=== PATIENT | female | born 1970 | race African-American/Black ===

== ENCOUNTER 2017-12-15 11:04 | Emergency (ER) | payer OTHER ==
[~2017-12-15] VITALS: Ht 167.6 cm; Wt 98.0 kg
[2017-12-15 11:23] VITALS: BP 153/102
[2017-12-15] MEDS ORDERED: KETOROLAC 30 MG/1 ML ONE (11:57)
[2017-12-15] MEDS ORDERED: DIAZEPAM 5 MG TABLET ONE (11:57)
[2017-12-15] MEDS ORDERED: KETOROLAC 30 MG/1 ML IM ONE (12:00)
[2017-12-15] MEDS ORDERED: DIAZEPAM 5 MG TABLET PO ONE (12:00)
== END 2017-12-15 12:51 | disposition home or self-care (01) ==
LOC: ED 12:45
DX: G24.3 Spasmodic torticollis (principal); Z88.1 Allergy status to other antibiotic agents; Z88.8 Allergy status to other drugs, medicaments and biological substances
CPT/HCPCS: 73630; 96372; 99284; J1885